=== PATIENT | female | born 1985 | race American Indian/Alaskan Native ===

== ENCOUNTER 2017-03-01 07:52 | Outpatient (CLI) | payer OTHER ==
--- NOTE | 2017-03-01 09:11 | Ultrasound Report ---
Complete abdominal ultrasound: Epigastric pain. Imaging of the liver is unremarkable. The spleen is elongated measuring 13.5 cm but the overall volume is probably borderline. The body and head of the pancreas is visualized and unremarkable but the tail is obscured. The gallbladder is unremarkable and the CBD diameter is 2.9 mm. The right renal length is 11 cm and the left is 11.4 cm. Both kidneys are echogenically unremarkable. The diameter of the proximal abdominal aorta is approximately 17 mm. Impressions: No definite pathology identified.
== END 2017-03-01 07:53 | disposition home or self-care (01) ==
LOC: SPVWC 07:52
PROVIDERS: ATTEND Internal Medicine
DX: R10.13 Epigastric pain (principal)
CPT/HCPCS: 76700

== ENCOUNTER 2018-11-29 19:31 | Emergency (ER) | payer OTHER ==
--- NOTE | 2018-11-29 19:44 | Event Note ---
ED Screening Note ED Screening Note: pt presents for lower abd pain for 3 days no N/V/D no fever no urinary sx no vaginal discharge PMHx periumbilical hernia normal BM this morning hx of tubal ligation This initial assessment/diagnostic orders/clinical plan/treatment(s) is/are subject to change based on patients health status, clinical progression and re- assessment by fellow clinical providers in the ED. Further treatment and workup at subsequent clinical providers discretion. Patient/guardian urged not to elope from the ED as their condition may be serious if not clinically assessed and managed. Initial orders include: labs, UA, urine preg
[2018-11-29 20:20] LABS: Basophils % (Auto) 0.3 % (0.0-1.8); Eosinophils % (Auto) 0.5 % (0.0-4.3); Hematocrit 31.3 % (30.3-42.9); Hemoglobin 9.5 gm/dl (10.1-14.3); Lymphocytes # (Auto) 2.2 K/mm3 (1.2-5.4); Lymphocytes % (Auto) 31.8 % (13.4-35.0); Mean Corpuscular HGB Conc 30 % (30-34); Mean Corpuscular Volume 60 fl (79-97); Monocytes # (Auto) 0.6 K/mm3 (0.0-0.8); Monocytes % (Auto) 8.5 % (0.0-7.3); Platelet Count 245 K/mm3 (140-440); Red Blood Count 5.18 M/mm3 (3.65-5.03)
[2018-11-29 20:21] LABS: Red Cell Distribution Width 20.9 % (13.2-15.2)
[2018-11-29 20:31] LABS: Alanine Aminotransferase 10 units/L (7-56); Albumin 4.1 g/dL (3.9-5); BUN/Creatinine Ratio 14; Blood Urea Nitrogen 11 mg/dL (7-17); Hemolysis Index 4
--- NOTE | 2018-11-29 21:25 | Emergency Department Report ---
ED Abdominal Pain HPI - General Chief Complaint: Abdominal Pain Stated Complaint: FOOT/ABD PAIN Time Seen by Provider: 11/29/18 19:42 Source: patient Mode of arrival: Ambulatory Limitations: No Limitations - History of Present Illness Initial Comments: This is a 33-year-old female who presents to the ED for lower abd pain for 3 days. Patient states she has a past medical history umbilical hernia many years ago and was told that she may have abdominal pain from time to time. Patient also states that she woke up this morning and in both her feet were swollen. 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 patient denies fever//nausea vomiting/any urinary symptoms, vaginal discharge or bleeding. MD Complaint: abdominal pain - Related Data Home Medications Medication Instructions Recorded Confirmed Last Taken Fluticasone/Salmeterol [Advair 07/16/14 07/16/14 07/16/14 Diskus 250-50 mcg] Nitrofurantoin [place]/M-Cryst 100 mg PO Q12HR 07/16/14 07/16/14 07/16/14 [Macrobid CAP] Vit 10/Iron/Folic/Dha 07/16/14 07/16/14 07/16/14 [Vitafol-Ob+Dha Combo Pack] Promethazine [Phenergan] 25 mg PO Q6H PRN 07/16/14 07/16/14 07/16/14 Slow Release Iron(Nf) 07/16/14 07/16/14 07/16/14 Previous Rx's Medication Instructions Recorded Last Taken Type Dicyclomine [Bentyl] 20 mg PO BID #20 tablet 11/29/18 Unknown Rx Naproxen [Naprosyn] 500 mg PO BID #30 tablet 11/29/18 Unknown Rx Allergies Allergy/AdvReac Type Severity Reaction Status Date / Time No Known Allergies Allergy Verified 07/16/14 22:12 ED Review of Systems ROS: Stated complaint: FOOT/ABD PAIN Other details as noted in HPI Comment: All other systems reviewed and negative ED Past Medical Hx - Past Medical History Previous Medical History?: Yes Hx Hypertension: Yes Hx Diabetes: No Hx Deep Vein Thrombosis: No Hx Renal Disease: No Hx Sickle Cell Disease: No Hx Seizures: No Hx Asthma: Yes Hx HIV: No Additional medical history: anemia, pneumonia - Surgical History Past Surgical History?: Yes Additional Surgical History: x2 20. tubal ligation 2014 - Social History Smoking Status: Never Smoker Substance Use Type: None - Medications Home Medications: Home Medications Medication Instructions Recorded Confirmed Last Taken Type Fluticasone/Salmeterol [Advair 07/16/14 07/16/14 07/16/14 History Diskus 250-50 mcg] Nitrofurantoin [place]/M-Cryst 100 mg PO Q12HR 07/16/14 07/16/14 07/16/14 History [Macrobid CAP] Vit 10/Iron/Folic/Dha 07/16/14 07/16/14 07/16/14 History [Vitafol-Ob+Dha Combo Pack] Promethazine [Phenergan] 25 mg PO Q6H PRN 07/16/14 07/16/14 07/16/14 History Slow Release Iron(Nf) 07/16/14 07/16/14 07/16/14 History Dicyclomine [Bentyl] 20 mg PO BID #20 tablet 11/29/18 Unknown Rx Naproxen [Naprosyn] 500 mg PO BID #30 tablet 11/29/18 Unknown Rx ED Physical Exam - General Limitations: No Limitations General appearance: alert, in no apparent distress - Head Head exam: Present: atraumatic, normocephalic - Eye Eye exam: Present: normal appearance - ENT ENT exam: Present: mucous membranes moist - Neck Neck exam: Present: normal inspection - Respiratory Respiratory exam: Present: normal lung sounds bilaterally. Absent: respiratory distress - Cardiovascular Cardiovascular Exam: Present: regular rate, normal rhythm. Absent: systolic murmur, diastolic murmur, rubs, gallop - GI/Abdominal GI/Abdominal exam: Present: soft, normal bowel sounds. Absent: distended, tenderness, guarding, rebound, mass, bruit - Extremities Exam Extremities exam: Present: normal inspection, full ROM, pedal edema. Absent: tenderness, joint swelling, calf tenderness - Back Exam Back exam: Present: normal inspection, full ROM - Neurological Exam Neurological exam: Present: alert, oriented X3 - Psychiatric Psychiatric exam: Present: normal affect, normal mood - Skin Skin exam: Present: warm, dry, intact, normal color. Absent: rash ED Course Vital Signs 11/29/18 11/29/18 11/29/18 19:37 19:39 19:49 Temperature 98.5 F 98.5 F 98.7 F Pulse Rate 96 H 94 H 115 H Respiratory 18 18 22 Rate Blood Pressure 133/84 133/84 107/59 O2 Sat by Pulse 99 99 100 Oximetry ED Medical Decision Making - Lab Data Result diagrams: 11/29/18 19:53 11/29/18 19:53 - Medical Decision Making 33-year-old female presents with abdominal pain. BC, CMP, urinalysis and test COMPLETED Labs are all within normal limits no abnormalities Discussed findings with the patient. Discussed the patient to use compression socks and rhythm on her foot. Discussed elevating the foot periodically throughout the day and no prolonged standing. Discussed follow-up with logistics lead as well as primary care physician. Vital signs are normal patient is in no acute distress Critical care attestation.: If time is entered above; I have spent that time in minutes in the direct care of this critically ill patient, excluding procedure time. ED Disposition Clinical Impression: Bilateral foot pain, Abdominal pain Disposition: DC- TO HOME OR SELFCARE Is pt being admited?: No Does the pt Need Aspirin: No Condition: Stable Instructions: Abdominal Pain (ED), Arthralgia (ED) Additional Instructions: Make sure to follow up with the primary care physician as discussed. Follow-up with logistics lead. Make sure you to get some compression socks to wear on feet Take all your medications as you've been prescribed. If you have any worsening symptoms or develop new symptoms please return to ED immediately. Prescriptions: Dicyclomine [Bentyl] 20 mg PO BID #20 tablet Naproxen [Naprosyn] 500 mg PO BID #30 tablet Referrals: CARTER KNUTSON MD [Primary Care Provider] - 3-5 Days [facility] [Provider Group] - 3-5 Days Forms: Accompanied Note, Work/School Release Form(ED) Time of Disposition: 23:20
[2018-11-29 22:34] LABS: HCG Qualitative,Urine Negative (Negative)
[2018-11-29 22:43] LABS: Bilirubin,Urine NEG (Negative); Blood,Urine NEG (Negative); Color,Urine Yellow (Yellow); Mucus,Urine 1+ /HPF; Protein,Urine <15 mg/dL mg/dL (Negative); Urobilinogen,Urine < 2.0 mg/dL (<2.0)
[2018-11-29] MEDS ORDERED: TORADOL IM ONE (22:59)
[2018-11-29] MEDS ORDERED: DELTASONE PO ONE (22:59)
[2018-11-30 00:41] VITALS: BP 131/58
== END 2018-11-30 00:39 | disposition home or self-care (01) ==
LOC: ED 19:31
DX: R10.30 Lower abdominal pain, unspecified (principal); M79.671 Pain in right foot; M79.672 Pain in left foot; R22.43 Localized swelling, mass and lump, lower limb, bilateral; I10 Essential (primary) hypertension; J45.909 Unspecified asthma, uncomplicated; Z98.51 Tubal ligation status; Z86.2 Personal history of diseases of the blood and blood-forming organs and certain disorders involving the immune mechanism; Z79.899 Other long term (current) drug therapy
CPT/HCPCS: 36415; 80053; 81001; 81025; 83690; 85025; 96372; 99283; J1885; J7512

== ENCOUNTER 2018-12-24 23:38 | Emergency (ER) | payer OTHER ==
[2018-12-24 23:55] VITALS: BP 133/89
[2018-12-25 00:39] LABS: BUN/Creatinine Ratio 16; Blood Urea Nitrogen 11 mg/dL (7-17); Calcium 8.8 mg/dL (8.4-10.2); Hemolysis Index 1
[2018-12-25 00:57] LABS: Hematocrit 32.6 % (30.3-42.9); Hemoglobin 10.1 gm/dl (10.1-14.3); Mean Corpuscular HGB Conc 31 % (30-34); Platelet Count 251 K/mm3 (140-440); Red Blood Count 5.42 M/mm3 (3.65-5.03)
[2018-12-25 01:04] LABS: Mean Corpuscular Volume 60 fl (79-97)
[2018-12-25] MEDS ORDERED: BENADRYL IV ONE (01:53)
[2018-12-25] MEDS ORDERED: TORADOL IV ONE (01:53)
[2018-12-25] MEDS ORDERED: REGLAN IV ONE (01:53)
[2018-12-25] MEDS ORDERED: DECADRON IV ONE (01:53)
[2018-12-25] MEDS ORDERED: NACL 0.9% 1000 ML 1,000 ML IV ONE (01:54)
--- NOTE | 2018-12-25 02:09 | Emergency Department Report ---
ED Headache HPI - General Chief Complaint: Headache Stated Complaint: HEADACHES,BILATERAL ARM PAIN Time Seen by Provider: 12/25/18 01:52 - History of Present Illness Initial Comments: Patient is a 41-year-old -[place] female who presents for headache right frontal rated at 7/10 pounds past 3 days intermittent there is some nausea vomiting positive photophobia fevers no chills no neck pain no loss of vision or double vision no blurred vision symptoms are temporarily relieved by rest symptoms are exacerbated by activity There is no fever at this time. Timing/Duration: other (3 days ) Quality: moderate Head Injury Location: frontal Recent Head Trauma: no recent headache/trauma, occasional headaches Modifying Factors: improves with: movement Associated Symptoms: nausea/vomiting, nasal congestion, nasal drainage Allergies/Adverse Reactions: Allergies No Known Allergies Allergy (Verified 07/16/14 22:12) Home Medications: Ambulatory Orders Fluticasone/Salmeterol [Advair Diskus 250-50 mcg] 07/16/14 Nitrofurantoin [place]/M-Cryst [Macrobid CAP] 100 mg PO Q12HR 07/16/14 Vit 10/Iron/Folic/Dha [Vitafol-Ob+Dha Combo Pack] 07/16/14 Promethazine [Phenergan] 25 mg PO Q6H PRN 07/16/14 Slow Release Iron(Nf) 07/16/14 Dicyclomine [Bentyl] 20 mg PO BID #20 tablet 11/29/18 Naproxen [Naprosyn] 500 mg PO BID #30 tablet 11/29/18 Acetaminophen [Acetaminophen TAB] 1,000 mg PO Q6HR PRN #30 tablet 12/25/18 Metoclopramide [Reglan] 10 mg PO Q6H PRN #30 tablet 12/25/18 diphenhydrAMINE [Benadryl CAP] 25 mg PO Q6HR PRN #30 capsule 12/25/18 ED Review of Systems ROS: Stated complaint: HEADACHES,BILATERAL ARM PAIN Other details as noted in HPI Constitutional: denies: chills, fever Eyes: denies: eye pain, eye discharge, vision change ENT: congestion. denies: ear pain, throat pain Respiratory: denies: cough, shortness of breath, wheezing Cardiovascular: denies: chest pain, palpitations Endocrine: no symptoms reported Gastrointestinal: denies: abdominal pain, nausea, diarrhea Genitourinary: denies: urgency, dysuria, discharge Musculoskeletal: denies: back pain, joint swelling, arthralgia Skin: denies: rash, lesions Neurological: headache. denies: weakness, numbness, paresthesias, confusion, abnormal gait, vertigo Psychiatric: denies: anxiety, depression Hematological/Lymphatic: denies: easy bleeding, easy bruising ED Past Medical Hx - Past Medical History Previous Medical History?: Yes Hx Hypertension: Yes Hx Diabetes: No Hx Deep Vein Thrombosis: No Hx Renal Disease: No Hx Sickle Cell Disease: No Hx Seizures: No Hx Psychiatric Treatment: Yes (depression, Bipolar) Hx Asthma: Yes Hx HIV: No Additional medical history: anemia, pneumonia - Surgical History Past Surgical History?: Yes Additional Surgical History: x2 20. tubal ligation 2014 - Social History Smoking Status: Never Smoker - Medications Home Medications: Home Medications Medication Instructions Recorded Confirmed Last Taken Type Fluticasone/Salmeterol [Advair 07/16/14 07/16/14 07/16/14 History Diskus 250-50 mcg] Nitrofurantoin [place]/M-Cryst 100 mg PO Q12HR 07/16/14 07/16/14 07/16/14 History [Macrobid CAP] Vit 10/Iron/Folic/Dha 07/16/14 07/16/14 07/16/14 History [Vitafol-Ob+Dha Combo Pack] Promethazine [Phenergan] 25 mg PO Q6H PRN 07/16/14 07/16/14 07/16/14 History Slow Release Iron(Nf) 07/16/14 07/16/14 07/16/14 History Dicyclomine [Bentyl] 20 mg PO BID #20 tablet 11/29/18 Unknown Rx Naproxen [Naprosyn] 500 mg PO BID #30 tablet 11/29/18 Unknown Rx Acetaminophen [Acetaminophen TAB] 1,000 mg PO Q6HR PRN #30 tablet 12/25/18 Unknown Rx Metoclopramide [Reglan] 10 mg PO Q6H PRN #30 tablet 12/25/18 Unknown Rx diphenhydrAMINE [Benadryl CAP] 25 mg PO Q6HR PRN #30 capsule 12/25/18 Unknown Rx ED Physical Exam - General Limitations: No Limitations General appearance: alert, in no apparent distress - Head Head exam: Present: atraumatic, normocephalic, normal inspection - Eye Eye exam: Present: normal appearance, PERRL, EOMI Pupils: Present: normal accommodation - ENT ENT exam: Present: normal orophraynx, mucous membranes moist, TM's normal bilaterally, normal external ear exam - Neck Neck exam: Present: normal inspection, full ROM. Absent: tenderness, lymphadenopathy - Respiratory Respiratory exam: Present: normal lung sounds bilaterally. Absent: respiratory distress, wheezes, stridor, chest wall tenderness - Cardiovascular Cardiovascular Exam: Present: regular rate, normal rhythm, normal heart sounds. Absent: systolic murmur, diastolic murmur, rubs, gallop - GI/Abdominal GI/Abdominal exam: Present: soft, normal bowel sounds. Absent: distended, tenderness, bruit, hernia - Rectal Rectal exam: Present: deferred - Extremities Exam Extremities exam: Present: normal inspection - Back Exam Back exam: Present: normal inspection. Absent: full ROM, tenderness, CVA tenderness (R), muscle spasm, rash noted - Neurological Exam Neurological exam: Present: alert, oriented X3, CN II-XII intact, normal gait, reflexes normal - Expanded Neurological Exam Expanded Patient oriented to: Present: person, place, time Speech: Present: fluid speech Cranial nerves: EOM's Intact: Normal, Gag Reflex: Normal, Tongue Deviation: Normal, Nystagmus: Normal, Facial Sensation: Normal Cerebellar function: Finger to Nose: Normal, Heel to [place]: Normal Upper motor neuron: Abraham Neglect: Normal, Pronator Drift: Normal, Sensory Extinction: Normal Motor strength exam: RUE: 5, LUE: 5, RLE: 5, LLE: 5 DTR: bicep (R): 2+, bicep (L): 2+, ankle (R): 2+, ankle (L): 2+ Best Eye Response (Derik): (4) open spontaneously Best Motor Response (Derik): (6) obeys commands Best Verbal Response ([place]): (5) oriented Derik Total: 15 - Psychiatric Psychiatric exam: Present: normal affect, normal mood - Skin Skin exam: Present: warm, dry, intact, normal color. Absent: rash ED Course Vital Signs 12/24/18 12/25/18 12/25/18 23:52 02:18 02:48 Temperature 98.0 F Pulse Rate 87 Respiratory 20 16 16 Rate Blood Pressure 133/89 O2 Sat by Pulse 100 Oximetry ED Medical Decision Making - Lab Data Result diagrams: 12/25/18 00:01 12/25/18 00:01 Labs 12/25/18 12/25/18 12/25/18 00:01 00:01 00:01 WBC 6.4 RBC 5.42 H Hgb 10.1 Hct 32.6 MCV 60 L MCH 19 L MCHC 31 RDW 21.0 H Plt Count 251 Sodium 142 Potassium 4.2 Chloride 105.0 Carbon Dioxide 24 Anion Gap 17 BUN 11 Creatinine 0.7 Estimated GFR > 60 BUN/Creatinine Ratio 16 Glucose 100 Calcium 8.8 HCG, Qual Negative - Radiology Data Radiology results: report reviewed, image reviewed Ordering Physician: MARY CRUZ NP Date of Service: 12/25/18 Procedure(s): CT head/brain wo con Accession Number(s): [id number] cc: MARY CRUZ NP CT HEAD WITHOUT CONTRAST INDICATION: headache TECHNIQUE: All CT scans at this location are performed using CT dose reduction for ALARA by means of automated exposure control. COMPARISON: None available. FINDINGS: BRAIN: No hemorrhage or mass effect are seen. No evidence of acute infarction is noted. ORBITS: Normal as visualized. SOFT TISSUES OF HEAD: Normal. CALVARIUM: Normal. VISUALIZED PARANASAL SINUSES AND MASTOID AIR CELLS: Clear. ADDITIONAL FINDINGS: None. IMPRESSION: No acute intracranial abnormality. Signer Name: Sebastian Madrid MD Signed: 12/25/2018 3:57 AM Workstation Name: [id number] Transcribed By: GJ Dictated By: Sebastian Madrid MD Electronically Authenticated By: Sebastian Madrid MD Signed Date/Time: 12/25/18 0357 DD/ 0353 TD/TT: - Medical Decision Making CT is normal, see above, headache is improved plan, tylenol, benadryl, reglan, follow up with Neurology as requested, follow up with pcp in 2-3 days , return to emergency if symptoms worsen. pt verbalized agreement and understanding of discharge plan dc'd to home in stable condition at this time. Critical care attestation.: If time is entered above; I have spent that time in minutes in the direct care of this critically ill patient, excluding procedure time. ED Disposition Clinical Impression: Headache Qualifiers: Headache type: unspecified Headache chronicity pattern: acute headache Intractability: not intractable Qualified Code(s): R51 - Headache Disposition: DC- TO HOME OR SELFCARE Is pt being admited?: No Does the pt Need Aspirin: No Condition: Stable Instructions: Acute Headache (ED) Prescriptions: Acetaminophen [Acetaminophen TAB] 1,000 mg PO Q6HR PRN #30 tablet PRN Reason: Headache diphenhydrAMINE [Benadryl CAP] 25 mg PO Q6HR PRN #30 capsule PRN Reason: Headache Metoclopramide [Reglan] 10 mg PO Q6H PRN #30 tablet PRN Reason: Headache Referrals: [facility] [Other] - 3-5 Days MARILYN CLAROS MD [Referring] - 3-5 Days Forms: Work/School Release Form(ED) Time of Disposition: 04:37
--- NOTE | 2018-12-25 04:01 | Cat Scan Report ---
CT HEAD WITHOUT CONTRAST INDICATION: headache TECHNIQUE: All CT scans at this location are performed using CT dose reduction for ALARA by means of automated exposure control. COMPARISON: None available. FINDINGS: BRAIN: No hemorrhage or mass effect are seen. No evidence of acute infarction is noted. ORBITS: Normal as visualized. SOFT TISSUES OF HEAD: Normal. CALVARIUM: Normal. VISUALIZED PARANASAL SINUSES AND MASTOID AIR CELLS: Clear. ADDITIONAL FINDINGS: None. IMPRESSION: No acute intracranial abnormality. Signer Name: Sebastian Madrid MD Signed: 12/25/2018 3:57 AM Workstation Name: [id number]
== END 2018-12-25 04:48 | disposition home or self-care (01) ==
LOC: ED 23:38
DX: R51 Headache (principal); R11.2 Nausea with vomiting, unspecified; R09.81 Nasal congestion; I10 Essential (primary) hypertension; J45.909 Unspecified asthma, uncomplicated; F31.9 Bipolar disorder, unspecified
CPT/HCPCS: 36415; 70450; 80048; 84703; 85027; 96361; 96374; 96375; 99284; J1100; J1200; J1885; J2765; J7030